=== PATIENT | male | born 1955 | race Caucasian/White ===

== ENCOUNTER 2017-01-09 16:56 | Emergency (ER) | payer OTHER ==
--- NOTE | 2017-01-09 17:40 | UC ---
Norm Lamas Nikita, scribed for Belia Evangelista MD on 01/09/17 at 1727 . Upper Extremity HPI - HPI Summary HPI Summary: This patient is a 61 year old M presenting to [facility] with a chief complaint of a pinched nerve in the R side of his neck since 3 weeks ago. The pt had a muscle cramps in his legs which caused him to swing his R arm which may have caused the pinch nerve. The CC is described as constant and aching. The patient rates the pain 8/10 in severity. Symptoms aggravated by turning his neck. Symptoms alleviated by Aleve (pt took other anti-inflammatory meds without relief) and lying down with his arm is above his head. Patient reports swelling in the fingers of his R hand, numbing in the R forearm, thumb, 1st finger, and half of 2nd finger on the R hand. Patient denies COLLAZO, eye symptoms, and any previous injuries to his neck. He has also been using tramadol for pain. (Review of HCS reveals that he is using suboxone per Dr. Gonzalez--info was not disclosed at triage.). - History of Current Complaint Chief Complaint: UCUpperExtremity Stated Complaint: SHOULDER PAIN Time Seen by Provider: 01/09/17 17:06 Hx Obtained From: Patient Onset/Duration: Sudden Onset, Lasting Weeks - 3 weeks ago, Still Present Severity Initially: Severe Severity Currently: Severe Pain Intensity: 8 Pain Scale Used: 0-10 Numeric Location Of Pain: Is Discrete @ - R side of the neck Character: Aching Aggravating Factor(s): Other - turning his neck Alleviating Factor(s): Other: - Aleve helped a bit, lying down with his R arm above his head; pt took other anti-inflammatory meds without relief Associated Signs And Symptoms: Positive: Other - Patient reports swelling in the fingers of his R hand, numbing in the R forearm, thumb, 1st finger, and half of 2nd finger on the R hand. Patient denies COLLAZO, eye symptoms, and any previous injuries to his neck. - Allergies/Home Medications Allergies/Adverse Reactions: Allergies Allergy/AdvReac Type Severity Reaction Status Date / Time Phenobarbital Allergy Unknown Unknown Verified 08/05/14 14:47 Reaction Details PMH/Surg Hx/FS Hx/Imm Hx Previously Healthy: No - spinal infection in lower back (2 years ago) Cardiovascular History: Hypertension Respiratory History: COPD - Surgical History Surgical History: None - Family History Known Family History: Positive: Diabetes Negative: Cardiac Disease, Hypertension - Social History Occupation: Employed Full-time - works for [employer]. Alcohol Use: Occasionally Substance Use Type: None Smoking Status (MU): Heavy Every Day Tobacco Smoker Type: Cigarettes Have You Smoked in the Last Year: Yes Household Exposure Type: Cigarettes - Immunization History Most Recent Influenza Vaccination: pt denies Most Recent Tetanus Shot: unknown Most Recent Pneumonia Vaccination: pt denies Review of Systems Eyes: Negative Musculoskeletal: Other: - swelling in the fingers of his R hand; denies previous injuries to the neck gets a lot of leg cramping. Neurological: Numbness - to R forearm, thumb, 1st finger, and half of 2nd finger on the R hand, Other - denies COLLAZO All Other Systems Reviewed And Are Negative: Yes Physical Exam Triage Information Reviewed: Yes Appearance: Well-Appearing, Pain Distress - mild, Obese Vital Signs: Initial Vital Signs Temp 97.1 F 01/09/17 17:01 Pulse 63 01/09/17 17:01 Resp 18 01/09/17 17:01 Pulse Ox 99 01/09/17 17:01 Eye Exam: Normal ENT: Positive: Pharynx normal Neck: Positive: Supple - almost full ROM without pain, mild pain with rotation to right and left., Nontender, No Lymphadenopathy Respiratory: Positive: Lungs clear, Normal breath sounds Cardiovascular: Positive: RRR, No Murmur Musculoskeletal: Positive: Strength Intact - full resisted strength deltoid, biceps, wrist extensors and flexors. Neurological: Positive: Muscle Tone Normal - no loss of port surveyor strength, no muscle wasting. Skin Exam: Normal, Other - tattoos ++ Upper Extremity Course/Dx - Course Course Of Treatment: Pt medications reviewed this visit. Pt advised to quit smoking. Clinical evidence of cervical radiculopathy or brachial plexopathy. Declined PT, will trial gabapenting, advised f/u with PMD. I declined a request for SOMA. - Differential Dx/Diagnosis Differential Diagnosis/HQI/PQRI: Strain, Sprain, Other - radiculopathy Provider Diagnoses: cervical radiculpathy or brachial plexopathy Discharge - Discharge Plan Condition: Stable Disposition: HOME Prescriptions: Gabapentin CAP(*) [Neurontin 300 CAP(*)] 300 mg PO BEDTIME #30 cap Patient Education Materials: Cervical Radiculopathy (ED) Referrals: Gm Anguiano MD [Primary Care Provider] - Additional Instructions: Please schedule a follow up with Dr. Anguiano within the week. You show evidence of sensory nerve radiculopathy, but no loss of muscle strength. Begin use of gabapentin at night to help with nerve pain. I suggest stopping use of tramadol because you are using suboxone. Continue use of naproxen 440mg twice daily for relief of pain. Use hot packs on the neck to relieve pain. The documentation as recorded by the Norm taveras Nikita accurately reflects the service I personally performed and the decisions made by me, Belia Evangelista MD.
== END 2017-01-09 17:40 | disposition home or self-care (01) ==
LOC: UCEAST 16:56
DX: M54.12 Radiculopathy, cervical region (principal); I10 Essential (primary) hypertension; J44.9 Chronic obstructive pulmonary disease, unspecified; Z88.8 Allergy status to other drugs, medicaments and biological substances
CPT/HCPCS: 99212; G0463

== ENCOUNTER 2017-11-30 13:08 | Emergency (ER) | payer OTHER ==
--- NOTE | 2017-11-30 14:08 | RAD ---
HISTORY: SOBOE, edema, swollen legs, shortness of breath on exertion COMPARISONS: November 25, 2017 VIEWS: 4: Frontal dual-energy and lateral views of the chest. FINDINGS: CARDIOMEDIASTINAL SILHOUETTE: The cardiomediastinal silhouette is normal. SOHAIL: The sohail are normal. PLEURA: The costophrenic angles are sharp. No pleural abnormalities are noted. LUNG PARENCHYMA: The lungs are clear. ABDOMEN: The upper abdomen is clear. There is no subphrenic gas. BONES AND SOFT TISSUES: Degenerative changes are noted along the spine. OTHER: None. IMPRESSION: NO ACTIVE CARDIOPULMONARY DISEASE.
[2017-11-30 14:38] LABS: ABS Basophils 0 10^3/ul (0-0.2); ABS Eosinophils 0.1 10^3/ul (0-0.6); ABS Lymphocytes 1.4 10^3/ul (1.0-4.8); ABS Monocytes 0.8 10^3/ul (0-0.8); ABS Neutrophils 4.1 10^3/ul (1.5-7.7); ABS Nucleated RBC 0 10^3/ul; Eosinophil % 1.5 % (0-6); Hematocrit 44 % (42-52); Hemoglobin 15.1 g/dl (14.0-18.0); Lymphocyte % 21.4 % (25-47); Mean Corpuscular HGB Conc 35 g/dl (31-36); Mean Corpuscular Hemoglobin 36 pg (27-31); Mean Corpuscular Volume 103 fL (80-94); Mean Platelet Volume 9.4 um3 (7.4-10.4); Nucleated Red Blood Cells % 0; Platelet Count 73 10^3/ul (150-450); Red Blood Count 4.25 10^6/ul (4.00-5.40); Red Cell Distribution Width 15 % (10.5-15); White Blood Count 6.4 10^3/ul (3.5-10.8)
[2017-11-30 14:57] LABS: EGFR Non-African American 83.2 (>60)
[2017-11-30] MEDS ORDERED: Hydrochlorothiazide TAB* 25 MG PO ONE (18:11)
--- NOTE | 2017-11-30 18:11 | ED ---
Lower Extremity - HPI Summary HPI Summary: Complains of bilateral lower extremity edema 1 month, worse for the past 1.5 weeks. Patient states pain with walking, legs itch. Swelling diminishes with elevation. Seen here 11/25/17 for same. Also complains of chronic SOB, and muscle spasms in hands. Patient went to PCP today and was sent to the ED for further evaluation of bilateral lower leg edema and possible abdominal bloating.. Denies trauma, wound, fever, cough, sore throat, CP, active SOB, N/V /D, abdominal pain him a change in BM, change in urine. Medical history is COPD , HTN, hep C. No cardiac history. - History of Current Complaint Chief Complaint: EDExtremityLower Stated Complaint: SWOLLEN LEGS Time Seen by Provider: 11/30/17 17:20 Hx Obtained From: Patient Mechanism Of Injury: Unknown Onset of Pain: Days Onset/Duration: Weeks Severity Initially: Moderate Severity Currently: Moderate Pain Intensity: 5 Pain Scale Used: 0-10 Numeric Timing: Constant Location: Radiates To - Upper legs Character Of Pain: Aching, Throbbing Associated Signs And Symptoms: Positive: Swelling, Redness Aggravating Factor(s): Standing, Ambulation, Weight Bearing Alleviating Factor(s): Rest, Elevation - Allergies/Home Medications Allergies/Adverse Reactions: Allergies Allergy/AdvReac Type Severity Reaction Status Date / Time phenobarbital Allergy Unknown Verified 11/25/17 18:01 Reaction Details PMH/Surg Hx/FS Hx/Imm Hx Endocrine/Hematology History: Denies: Hx Anticoagulant Therapy, Hx Diabetes Cardiovascular History: Reports: Hx Hypertension Denies: Hx Cardiac Arrest, Hx Pacemaker/ICD Respiratory History: Reports: Hx Chronic Obstructive Pulmonary Disease (COPD), Other Respiratory Problems/Disorders History: Denies: Hx Renal Disease Musculoskeletal History: Reports: Hx Back Problems, Other Musculoskeletal History - spinal osteomylitis Sensory History: Reports: Hx Contacts or Glasses Denies: Hx Hearing Aid Opthamlomology History: Reports: Hx Contacts or Glasses Psychiatric History: Denies: Hx Panic Disorder Infectious Disease History: No Infectious Disease History: Denies: Traveled Outside the [place] in Last 30 Days - Family History Known Family History: Positive: Diabetes Negative: Cardiac Disease, Hypertension - Social History Alcohol Use: Occasionally Hx Substance Use: No Substance Use Type: Reports: None Hx Tobacco Use: Yes Smoking Status (MU): Heavy Every Day Tobacco Smoker Type: Cigarettes Have You Smoked in the Last Year: Yes Review of Systems Constitutional: Negative Eyes: Negative ENT: Negative Cardiovascular: Negative Respiratory: Negative Positive: Shortness Of Breath Gastrointestinal: Negative Genitourinary: Negative Positive: Edema Skin: Other Neurological: Negative Psychological: Normal All Other Systems Reviewed And Are Negative: Yes Physical Exam - Summary Physical Exam Summary: Bilateral pitting edema below the knees with redness and thickening of skin. No evidence of wound, extra warmth. Calves nontender bilaterally. PMS intact distally Triage Information Reviewed: Yes Vital Signs On Initial Exam: Initial Vitals Temp Pulse Resp BP Pulse Ox 99.6 F 75 15 163/102 95 11/30/17 13:10 11/30/17 13:10 11/30/17 13:10 11/30/17 13:10 11/30/17 13:10 Vital Signs Reviewed: Yes Appearance: Positive: Well-Appearing Skin: Positive: Warm Head/Face: Positive: Normal Head/Face Inspection Eyes: Positive: Normal Neck: Positive: Supple Respiratory/Lung Sounds: Positive: Clear to Auscultation Cardiovascular: Positive: Normal Abdomen Description: Positive: Nontender Musculoskeletal: Positive: Normal Neurological: Positive: Normal Psychiatric: Positive: Normal AVPU Assessment: Alert - Sandra Coma Scale Best Eye Response: 4 - Spontaneous Best Motor Response: 6 - Obeys Commands Best Verbal Response: 5 - Oriented Coma Scale Total: 15 Diagnostics - Vital Signs Vital Signs Temp Pulse Resp BP Pulse Ox 11/30/17 15:00 98.5 F 72 18 155/82 96 11/30/17 13:10 99.6 F 75 15 163/102 95 - Laboratory Lab Results: Lab Results 11/30/17 11/30/17 11/30/17 Range/Units 14:21 14:21 14:21 WBC 6.4 (3.5-10.8) 10^3/ul RBC 4.25 (4.00-5.40) 10^6/ul Hgb 15.1 (14.0-18.0) g/dl Hct 44 (42-52) % MCV 103 H (80-94) fL MCH 36 H (27-31) pg MCHC 35 (31-36) g/dl RDW 15 (10.5-15) % Plt Count 73 L (150-450) 10^3/ul MPV 9.4 (7.4-10.4) um3 Neut % (Auto) 63.8 (38-83) % Lymph % (Auto) 21.4 L (25-47) % Upton % (Auto) 12.6 H (0-7) % Eos % (Auto) 1.5 (0-6) % Baso % (Auto) 0.7 (0-2) % Absolute Neuts (auto) 4.1 (1.5-7.7) 10^3/ul Absolute Lymphs (auto) 1.4 (1.0-4.8) 10^3/ul Absolute Monos (auto) 0.8 (0-0.8) 10^3/ul Absolute Eos (auto) 0.1 (0-0.6) 10^3/ul Absolute Basos (auto) 0 (0-0.2) 10^3/ul Absolute Nucleated RBC 0 10^3/ul Nucleated RBC % 0 Sodium 136 (135-145) mmol/L Potassium 4.4 (3.5-5.0) mmol/L Chloride 106 (101-111) mmol/L Carbon Dioxide 24 (22-32) mmol/L Anion Gap 6 (2-11) mmol/L BUN 10 (6-24) mg/dL Creatinine 0.93 (0.67-1.17) mg/dL Est GFR ( Amer) 100.6 (>60) Est GFR (Non-Af Amer) 83.2 (>60) BUN/Creatinine Ratio 10.8 (8-20) Glucose 108 H (70-100) mg/dL Calcium 8.8 (8.6-10.3) mg/dL Total Bilirubin 1.60 H (0.2-1.0) mg/dL AST 85 H (13-39) U/L ALT 52 (7-52) U/L Alkaline Phosphatase 82 (34-104) U/L Troponin I 0.00 (<0.04) ng/mL C-Reactive Protein 4.67 (<8.01) mg/L B-Natriuretic Peptide 90 ( - 100) pg/mL Total Protein 7.8 (6.4-8.9) g/dL Albumin 3.8 (3.2-5.2) g/dL Globulin 4.0 (2-4) g/dL Albumin/Globulin Ratio 1.0 (1-3) Result Diagrams: 11/30/17 14:21 11/30/17 14:21 Lab Statement: Any lab studies that have been ordered have been reviewed, and results considered in the medical decision making process. Lower Extremity Course/Dx - Course Course Of Treatment: Complains of bilateral lower extremity edema 1 month, worse for the past 1.5 weeks. Patient states pain with walking, legs itch. Swelling diminishes with elevation. Seen here 11/25/17 for same. Also complains of chronic SOB, and muscle spasms in hands. Patient went to PCP today and was sent to the ED for further evaluation of bilateral lower leg edema and possible abdominal bloating.. Denies trauma, wound, fever, cough, sore throat, CP, active SOB, N/V/D, abdominal pain him a change in BM, change in urine. Medical history is COPD, HTN, hep C. No cardiac history. Physical exam:Bilateral pitting edema below the knees with redness and thickening of skin. No evidence of wound, extra warmth. Calves nontender bilaterally. PMS intact distally. Vital signs within normal limits and stable. Labs unremarkable. Chest x-ray negative. BMP negative. Patient started on hydrochlorothiazide 25 mg here in the ED. Rx for 25 mg daily 30 days. Follow-up with primary care. - Diagnoses Provider Diagnoses: Peripheral edema, Venous stasis Discharge - Sign-Out/Discharge Documenting (check all that apply): Patient Departure - Discharge Plan Condition: Stable Disposition: HOME Prescriptions: Hydrochlorothiazide TAB* [Hydrodiuril TAB*] 25 mg PO DAILY 30 Days #30 tab Patient Education Materials: Leg Edema (ED), Venous Insufficiency (DC) Referrals: Carie Martino MD [Primary Care Provider] - Additional Instructions: Follow-up with primary care for further management of leg edema and venous stasis. Return to the ED for any new or worsening symptoms - Billing Disposition and Condition Condition: STABLE Disposition: Home
[2017-11-30 19:14] VITALS: BP 168/102
== END 2017-11-30 19:13 | disposition home or self-care (01) ==
LOC: ED 13:08
DX: R60.0 Localized edema (principal); I87.8 Other specified disorders of veins; R06.02 Shortness of breath; M62.838 Other muscle spasm; Z88.8 Allergy status to other drugs, medicaments and biological substances; F17.210 Nicotine dependence, cigarettes, uncomplicated
CPT/HCPCS: 36415; 71046; 80053; 83880; 84484; 85025; 86140; 99282; A9270-GY

== ENCOUNTER 2018-04-17 18:01 | Emergency (ER) | payer OTHER ==
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
[2018-04-17 21:42] LABS: ALT 66 U/L (7-52); AST 135 U/L (13-39); Albumin 3.6 g/dL (3.2-5.2); Albumin/Globulin Ratio 0.9 (1-3); Alkaline Phosphatase 101 U/L (34-104); Anion Gap 8 mmol/L (2-11); BUN/Creatinine Ratio 9.7 (8-20); Blood Urea Nitrogen 11 mg/dL (6-24); CO2 Carbon Dioxide 22 mmol/L (22-32); Calcium 9.1 mg/dL (8.6-10.3); Chloride 104 mmol/L (101-111); EGFR African American 80.1 (>60); EGFR Non-African American 66.2 (>60); Globulin 4.2 g/dL (2-4); Glucose 139 mg/dL (70-100); Potassium 4.2 mmol/L (3.5-5.0); Sodium 134 mmol/L (135-145); Total Protein 7.8 g/dL (6.4-8.9)
[2018-04-17 21:49] LABS: Hematocrit 46 % (42-52); Hemoglobin 15.8 g/dl (14.0-18.0); Mean Corpuscular HGB Conc 34 g/dl (31-36); Mean Corpuscular Hemoglobin 36 pg (27-31); Mean Corpuscular Volume 106 fL (80-94); Red Blood Count 4.39 10^6/ul (4.00-5.40); Red Cell Distribution Width 16 % (10.5-15); White Blood Count 6.3 10^3/ul (3.5-10.8)
[2018-04-17 21:56] LABS: Alcohol < 10 mg/dL (<10)
[2018-04-17 22:10] LABS: ABS Basophils 0 10^3/ul (0-0.2); ABS Eosinophils 0.1 10^3/ul (0-0.6); ABS Lymphocytes 1.6 10^3/ul (1.0-4.8); ABS Monocytes 0.6 10^3/ul (0-0.8); ABS Neutrophils 3.9 10^3/ul (1.5-7.7); ABS Nucleated RBC 0 10^3/ul; Eosinophil % 2.2 %; Lymphocyte % 25.2 %; Mean Platelet Volume 10.1 fL (7.4-10.4); Nucleated Red Blood Cells % 0.2; Platelet Count 71 10^3/ul (150-450)
[2018-04-17 23:33] LABS: Urine Appearance Cloudy; Urine Bacteria Absent (Absent); Urine Bilirubin 1+ (Negative); Urine Blood Negative (Negative); Urine Color Amber; Urine Glucose Negative (Negative); Urine Ketones Trace (Negative); Urine Nitrite Negative (Negative); Urine Protein 1+(30 mg/dL) (Negative); Urine Red Blood Cell 2+(6-10/hpf) (Absent); Urine Specific Gravity 1.033 (1.010-1.030); Urine Urobilinogen Positive (Negative); Urine White Blood Cell Trace(0-5/hpf) (Absent)
[2018-04-17 23:48] LABS: Barbiturates Urine Screen None Detected (None Detect); Benzodiazepine Urine Screen None Detected (None Detect); Urine Cannabinoids Screen None Detected (None Detect)
[2018-04-18 00:37] VITALS: BP 162/98
== END 2018-04-18 00:52 | disposition short-term general hospital (02) ==
LOC: ED 18:01
DX: R41.82 Altered mental status, unspecified (principal); G56.30 Lesion of radial nerve, unspecified upper limb; I10 Essential (primary) hypertension; J44.9 Chronic obstructive pulmonary disease, unspecified; F17.210 Nicotine dependence, cigarettes, uncomplicated
CPT/HCPCS: 36415; 70450; 72125; 80053; 80307; 80320; 81003; 81015; 85025; 87086; 99283; G0480

== ENCOUNTER 2018-10-04 17:50 | Inpatient (IN) | payer OTHER ==
--- NOTE | 2018-10-04 20:36 | ED ---
GI/ HPI - HPI Summary HPI Summary: A 62 y/o male presents to [facility] with a chief complaint of constipation for 4 weeks. The patient has been using Miralax and enemas and claims that only clear liquid was able to come out. The patient c/o some abdominal pain, and cannot eat much. REACH referred him to the ED. He has been taking his suboxone. He denies any Hx of hernias or any abdominal surgeries. Pt denies any fever, chills , erythema of eyes, sore throat, CP, SOB, cough, N/V, dysuria, hematuria, myalgia, edema, rash, or dizziness. At triage the patient rated his pain as a 5/ 10 in severity. - History of Current Complaint Chief Complaint: EDConstipation Time Seen by Provider: 10/04/18 19:49 Stated Complaint: UNABLE TO MOVE HIS BOWELS PER PT Hx Obtained From: Patient Onset/Duration: Started Weeks Ago, Still Present Timing: Lasting Weeks Severity: Moderate Current Severity: Moderate Pain Intensity: 5 Location of Pain: Diffuse Pain Characteristics: Unable to describe Associated Signs and Symptoms: Positive: Abdominal Pain. Negative: Dizziness, Nausea, Vomiting, Fever, Chills, Cough, Chest Pain Aggravating Factor(s): Nothing Alleviating Factor(s): Nothing - Allergy/Home Medications Allergies/Adverse Reactions: Allergies Allergy/AdvReac Type Severity Reaction Status Date / Time phenobarbital Allergy Unknown Verified 10/04/18 19:51 Reaction Details PMH/Surg Hx/FS Hx/Imm Hx Endocrine/Hematology History: Denies: Hx Anticoagulant Therapy, Hx Diabetes Cardiovascular History: Reports: Hx Hypertension Denies: Hx Cardiac Arrest, Hx Pacemaker/ICD Respiratory History: Reports: Hx Chronic Obstructive Pulmonary Disease (COPD), Other Respiratory Problems/Disorders GI History: Reports: Other GI Disorders - Patient has taken therapy for hepatitis C and states he is cleared History: Denies: Hx Renal Disease Musculoskeletal History: Reports: Hx Back Problems, Other Musculoskeletal History - spinal osteomylitis Sensory History: Reports: Hx Contacts or Glasses Denies: Hx Hearing Aid Opthamlomology History: Reports: Hx Contacts or Glasses Neurological History: Reports: Other Neuro Impairments/Disorders - Patient has a history of painful peripheral neuropathy Psychiatric History: Denies: Hx Panic Disorder Infectious Disease History: No Infectious Disease History: Denies: Traveled Outside the [place] in Last 30 Days - Family History Known Family History: Positive: Diabetes Negative: Cardiac Disease, Hypertension - Social History Alcohol Use: Occasionally Hx Substance Use: No Substance Use Type: Reports: None Substance Use Comment - Amount & Last Used: on subaxone Hx Tobacco Use: Yes Smoking Status (MU): Heavy Every Day Tobacco Smoker Type: Cigarettes Have You Smoked in the Last Year: Yes Review of Systems Negative: Fever, Chills Negative: Erythema Negative: Sore Throat Negative: Chest Pain Negative: Shortness Of Breath, Cough Positive: Abdominal Pain, Other - positive: constipation. Negative: Vomiting, Nausea Negative: dysuria, hematuria Negative: Myalgia, Edema Negative: Rash Neurological: Negative - dizziness All Other Systems Reviewed And Are Negative: Yes Physical Exam - Summary Physical Exam Summary: Constitutional: Well-developed, Well-nourished, Alert. (-) Distressed Skin: Warm, Dry HENT: Normocephalic; Atraumatic Eyes: Conjunctiva normal Neck: Musculoskeletal ROM normal neck. (-) JVD, (-) Stridor, (-) Tracheal deviation Cardio: Rhythm regular, rate normal, Heart sounds normal; Intact distal pulses; The pedal pulses are 2+ and symmetric. Radial pulses are 2+ and symmetric. (-) Murmur Pulmonary/Chest wall: Effort normal. (-) Respiratory distress, (-) Wheezes, (-) Rales Abd: Soft, (-) tenderness (-) Guarding, (-) Rebound. Distended abdomen, bowel sounds are present Musculoskeletal: (-) Edema Lymph: (-) Cervical adenopathy Neuro: Alert, Oriented x3 Triage Information Reviewed: Yes Vital Signs On Initial Exam: Initial Vitals Temp Pulse Resp BP Pulse Ox 98.3 F 98 16 157/99 97 10/04/18 18:04 10/04/18 18:04 10/04/18 18:04 10/04/18 18:04 10/04/18 18:04 Vital Signs Reviewed: Yes Diagnostics - Vital Signs Vital Signs Temp Pulse Resp BP Pulse Ox 10/04/18 20:01 91 98 10/04/18 19:45 98 157/99 99 10/04/18 19:44 95 99 10/04/18 18:04 98.3 F 98 16 157/99 97 - Laboratory Result Diagrams: 10/04/18 21:59 07/17/19 21:59 Lab Statement: Any lab studies that have been ordered have been reviewed, and results considered in the medical decision making process. - Radiology abdomen x-ray Radiology Interpretation Completed By: ED Physician Summary of Radiographic Findings: Air fluid levels. Pending official imaging report. GIGU Course/Dx - Course Course Of Treatment: A 62 y/o male presents to [facility] with a chief complaint of constipation for 4 weeks. The patient has been using Miralax and enemas and claims that only clear liquid was able to come out. The patient c/o some abdominal pain, and cannot eat much. REACH referred him to the ED. He has been taking his suboxone. He denies any Hx of hernias or any abdominal surgeries. Pt denies any fever, chills, erythema of eyes, sore throat, CP, SOB, cough, N/V, dysuria, hematuria, myalgia, edema, rash, or dizziness. At triage the patient rated his pain as a 5/10 in severity. The physical exam revealed a distended abdomen, bowel sounds are present. Abdomen x-ray revealed air fluid levels. The patient will be signed out to Dr. Waite at 22:00 10/04/[address] abdomen/ pelvis, gallbladder ultrasound and labs. - Diagnoses Provider Diagnoses: Constipation Discharge - Sign-Out/Discharge Documenting (check all that apply): Sign-Out Patient Signing out patient TO: Bonny Waite - pending CT abomen/pelvis, gallbladder ultrasound and labs Patient Received Moderate/Deep Sedation with Procedure: No - Discharge Plan Condition: Stable Referrals: Carie Martino MD [Primary Care Provider] - - Attestation Statements Document Initiated by Scribe: Yes Documenting Scribe: Nir Gooden Provider For Whom Scribe is Documenting (Include Credential): Nikko Marie MD Scribe Attestation: Nir Lamas, scribed for Nikko Marie MD on 10/04/18 at 4725.
[2018-10-04 22:10] LABS: Hematocrit 40 % (42-52); Hemoglobin 13.8 g/dL (14.0-18.0); Mean Corpuscular HGB Conc 34 g/dL (31-36); Mean Corpuscular Hemoglobin 38 pg (27-31); Mean Corpuscular Volume 110 fL (80-94); Mean Platelet Volume 8.6 fL (7.4-10.4); Platelet Count 64 10^3/uL (150-450); Red Blood Count 3.68 10^6 /uL (4.18-5.48); Red Cell Distribution Width 16 % (10-15); White Blood Count 6.6 10^3/uL (3.5-10.8)
[2018-10-04 22:23] LABS: Albumin 2.8 g/dL (3.2-5.2); Albumin/Globulin Ratio 0.6 (1-3); BUN/Creatinine Ratio 9.3 (8-20); Calcium 8.5 mg/dL (8.6-10.3); EGFR African American 85.3 (>60); EGFR Non-African American 70.5 (>60); Globulin 4.6 g/dL (2-4); Potassium 3.8 mmol/L (3.5-5.0); Total Bilirubin 8.3 mg/dL (0.2-1.0); Total Protein 7.4 g/dL (6.4-8.9)
--- NOTE | 2018-10-04 22:56 | ED ---
Progress - Progress Note Progress Note: Patient received from Dr. Marie to Dr. Waite at 2200 10/04/[address] A/P, labs, and gallbladder US. - Results/Orders Results/Orders: Gallbladder US: Per radiologist, 1. The common bile duct was not visualized because of overlying bowel gas. 2. There is ascites in the abdomen. 3. The liver parenchyma is echogenic and there is nodular contour consistent with hepatic cirrhosis. 4. The gallbladder is partly obscured but no visible calculi but there is mild gallbladder wall thickening measuring 4 mm and there is ascites fluid in the gallbladder fossa but negative sonographic Walker sign and therefore not specific for acute cholecystitis. ED physician has reviewed this imaging report. Abdomen/Pelvis CT: Per radiologist, 1. There is a moderate left pleural effusion and left base atelectasis and/or pneumonitis. 2. There is diffuse fatty liver and small nodular contour of the liver suspicious for hepatic cirrhosis. 3. The gallbladder is moderately distended and there are punctate calcifications along the gallbladder wall which may represent tiny cholelithiasis versus calcified polyps. 4. There are portosystemic collateral veins in the abdomen and paraesophageal region consistent with portal venous hypertension related to hepatic cirrhosis. 5. There is moderate ascites in the abdomen and pelvis likely secondary to hepatic cirrhosis. 6. There may be mild wall thickening in the distal esophagus, cannot exclude mild esophagitis. 7. There are mildly dilated loops of proximal jejunum, cannot exclude focal ileus versus partial small bowel obstruction. ED physician has reviewed this imaging report. Course/Dx - Course Course Of Treatment: A 62 y/o male presents to [facility] with a chief complaint of distended abdomen. Hx of Hepatitis C last year. Patient was treated by Dr. Eden Waldrop and Daiana Martino, his primary care provider. Patient reports to consume alchol every day "forever" as described by . Patient was diagnosed with liver cirrhosis by Dr. Martino . Patient denies fluid being taken out of abdomen. Patient denies any serious fall but notes he fell out of his bed a few weeks ago. Physical exam shows no abnormalities except for Tense ascites, Lower extremity edema, Large ecchymotic area over right lower abdomen, and Icteric scelra. Gallbladder US reveals. 1. The common bile duct was not visualized because of overlying bowel gas. 2. There is ascites in the abdomen. 3. The liver parenchyma is echogenic and there is nodular contour consistent. with hepatic cirrhosis. 4. The gallbladder is partly obscured but no visible calculi but there is mild. gallbladder wall thickening measuring 4 mm and there is ascites fluid in the. gallbladder fossa but negative sonographic Walker sign and therefore not. specific for acute cholecystitis. Abdomen/ Pelvis CT reveals. 1. There is a moderate left pleural effusion and left base atelectasis and/or. pneumonitis. 2. There is diffuse fatty liver and small nodular contour of the liver. suspicious for hepatic cirrhosis. 3. The gallbladder is moderately distended and there are punctate. calcifications along the gallbladder wall which may represent tiny. cholelithiasis versus calcified polyps. 4. There are portosystemic collateral veins in the abdomen and paraesophageal. region consistent with portal venous hypertension related to hepatic cirrhosis. 5. There is moderate ascites in the abdomen and pelvis likely secondary to. hepatic cirrhosis. 6. There may be mild wall thickening in the distal esophagus, cannot exclude. mild esophagitis. 7. There are mildly dilated loops of proximal jejunum, cannot exclude focal. ileus versus partial small bowel obstruction. Physician discusses admission with Dr. Yadav, hospitalist, at 0115 who agrees to admission. Patient agrees to plan. Patient will be admitted. - Diagnoses Provider Diagnoses: Liver cirrhosis, Ascites - Provider Notifications Discussed Care Of Patient With: Eder Yadav Time Discussed With Above Provider: 01:15 Instructed by Provider To: Other Discharge - Sign-Out/Discharge Documenting (check all that apply): Patient Departure - admit Patient Received Moderate/Deep Sedation with Procedure: No - Discharge Plan Condition: Stable Disposition: ADMITTED TO [facility] - Billing Disposition and Condition Condition: STABLE Disposition: Admitted to [facility] - Attestation Statements Document Initiated by Cassidyibe: Yes Documenting Scribe: Sheron Solomon Provider For Whom Carlos is Documenting (Include Credential): Bonny Waite MD Scribe Attestation: Cydney, Sheron Solomon, scribed for Bonny Waite MD on 10/05/18 at 0615. Scribe Documentation Reviewed: Yes Provider Attestation: The documentation as recorded by the cassidyibtata, Sheron Solomon accurately reflects the service I personally performed and the decisions made by mn, Bonny Waite MD Status of Scribe Document: Viewed
[2018-10-04] MEDS ORDERED: Iohexol 300* (CONTRAST) 10 ML SDV IV ONE (22:58)
[2018-10-04 23:11] LABS: Activated Partial Thrombo Time 45.6 seconds (26.0-38.0); INR 2.25 (0.82-1.09)
[2018-10-04 23:22] LABS: C Reactive Protein 15.97 mg/L (<8.01); Magnesium 1.9 mg/dL (1.9-2.7)
--- NOTE | 2018-10-05 04:59 | HP ---
History of Present Illness - History of Present Illness Reason for Visit: Constipation History of Present Illness: 62yoM with HTN, Hep C s/p interferon treatment, COPD here due to constipation with no BM for over 4 weeks. No other fever, chills. Feels bloated, "ready to explode", abdominal pain especially if he coughs. No nausea/vomiting. Feels a bit short of breath due to abdominal distension. Past Medical History Hypertension CAD Chronic Obstructive Pulmonary Disease (COPD) Hepatitis C s/p interferon History of polysubstance abuse now on suboxone has been clean for 3 years Hx Back Problems with Spinal osteomylitis s/p PICC line with ABx for 1 year Peripheral neuropathy Klebsiella Pneumoniae bacteremia with PICC line infection Past Surgical History None Allergies Allergy/AdvReac Type Severity Reaction Status Date / Time phenobarbital Allergy Unknown Verified 10/04/18 19:51 Reaction Details Home Medications Medication Instructions Recorded Confirmed Type Fluticasone-Salmeterol 100-50* 1 puff INH BID 08/05/14 10/04/18 History [Advair Diskus 100-50*] Tramadol HCl [Ultram] 50 mg PO TID PRN 08/05/14 10/04/18 History Gabapentin CAP(*) [Neurontin 300 300 mg PO BEDTIME #30 cap 01/09/17 10/04/18 Rx CAP(*)] Buprenorp/Nalox 8-2 MG FILM 16 mg PO DAILY 11/25/17 10/04/18 History [Suboxone 8 mg-2 mg Sl Film] Lisinopril 20 mg PO DAILY 11/25/17 10/04/18 History - Past Family History Family History: Other - Father of heart attack in his 70s. Mother age 87 due to old age. - Past Social History Smoke: 1 pack per day - For at least 30 years. 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 Alcohol: Heavy - 1-2 Drinks every day. Usually prefers burbon and coke. Drugs: None, Cocaine, Heroin - Used up until 3 years ago when he quit. Now on suboxone., Marijuana Lives: With Family - Lives with . Review of Systems - Measurements Intake and Output: Intake and Output Last 24 Hours 10/02/18 10/03/18 10/04/18 10/05/18 06:59 06:59 06:59 06:59 Weight 220 lb - Review of Systems Constitutional Symptoms: Positive: Weight Gain Negative: Fever Pulmonary: Positive: Shortness of Breath Cardiology: Positive: Shortness of Breath Negative: Chest Pain Gastroenterology: Positive: Abdominal Pain, Constipation Negative: Nausea, Vomiting Objective Vital Signs - 8 hr 10/04/18 10/04/18 10/04/18 21:01 21:13 21:15 Pulse Rate 88 94 86 Blood Pressure 159/107 (mmHg) O2 Sat by Pulse 97 99 98 Oximetry 10/04/18 10/04/18 10/04/18 22:00 22:15 23:22 Pulse Rate 95 93 92 Blood Pressure 149/89 (mmHg) O2 Sat by Pulse 99 99 97 Oximetry 10/05/18 10/05/18 00:00 01:00 Pulse Rate 91 90 Blood Pressure (mmHg) O2 Sat by Pulse 98 95 Oximetry Oxygen Devices in Use Now: None Eyes: No Scleral Icterus, PERRLA Ears/Nose/Mouth/Throat: NL Teeth, Lips, Gums, Clear Oropharnyx, Mucous Membranes Moist Neck: Trachea Midline Respiratory: Clear to Auscultation Cardiovascular: NL Sounds; No Murmurs; No JVD, RRR Abdominal: - - Abdominal distension with shifting dullness. Extremities: - - Bilateral LE pitting edema. Skin: No Rash or Ulcers Neurological: Alert and Oriented x 3, NL Sensation, NL Muscle Strength and Tone Nutrition: Taking PO's Result Diagrams: 10/04/18 21:59 10/04/18 21:59 Diagnostic Imaging: Gallbladder US: 1. The common bile duct was not visualized because of overlying bowel gas. 2. There is ascites in the abdomen. 3. The liver parenchyma is echogenic and there is nodular contour consistent with hepatic cirrhosis. 4. The gallbladder is partly obscured but no visible calculi but there is mild gallbladder wall thickening measuring 4 mm and there is ascites fluid in the gallbladder fossa but negative sonographic Walker sign and therefore not specific for acute cholecystitis. Abdomen/Pelvis CT: 1. There is a moderate left pleural effusion and left base atelectasis and/or pneumonitis. 2. There is diffuse fatty liver and small nodular contour of the liver suspicious for hepatic cirrhosis. 3. The gallbladder is moderately distended and there are punctate calcifications along the gallbladder wall which may represent tiny cholelithiasis versus calcified polyps. 4. There are portosystemic collateral veins in the abdomen and paraesophageal region consistent with portal venous hypertension related to hepatic cirrhosis. 5. There is moderate ascites in the abdomen and pelvis likely secondary to hepatic cirrhosis. 6. There may be mild wall thickening in the distal esophagus, cannot exclude mild esophagitis. 7. There are mildly dilated loops of proximal jejunum, cannot exclude focal ileus versus partial small bowel obstruction. Assess/Plan/Problems-Billing Assessment: - Patient Problems (1) Cirrhosis of liver with ascites Current Visit: Yes Status: Acute Code(s): K74.60 - UNSPECIFIED CIRRHOSIS OF LIVER; R18.8 - OTHER ASCITES SNOMED Code(s): 50427176 Comment: Will get paracenthesis and analyze the fluid. Consult GI regarding worsening liver function with MELD score of 24. If fluid shows elevated WBC can consider treatment for SBP. Given elevated ammonia will consider lactulose although patient currently not altered. (2) Constipation Current Visit: Yes Status: Acute Code(s): K59.00 - CONSTIPATION, UNSPECIFIED SNOMED Code(s): 89208408 Comment: Likely secondary to ascieties. Start lactulose. (3) Hepatitis C virus infection cured after antiviral drug therapy Current Visit: Yes Status: Resolved Code(s): Z86.19 - PERSONAL HISTORY OF OTHER INFECTIOUS AND PARASITIC DISEASES SNOMED Code(s): 604782050 (4) COPD (chronic obstructive pulmonary disease) Current Visit: No Status: Chronic Priority: Medium Code(s): J44.9 - CHRONIC OBSTRUCTIVE PULMONARY DISEASE, UNSPECIFIED SNOMED Code(s): 78022892 Comment: Stable- no evidence of exacerbation at this time. (5) HTN (hypertension) Current Visit: No Status: Chronic Code(s): I10 - ESSENTIAL (PRIMARY) HYPERTENSION SNOMED Code(s): 56861352 Comment: Restart home meds. (6) Opiate dependence Current Visit: Yes Status: Acute Code(s): F11.20 - OPIOID DEPENDENCE, UNCOMPLICATED SNOMED Code(s): 70559933 Comment: On Suboxone. (7) DVT prophylaxis Current Visit: No Status: Acute Code(s): NTG3638 - SNOMED Code(s): 688151398 Comment: SCD only given abnormal LFTs
[2018-10-05] MEDS ORDERED: traMADol TAB* 50 MG PO PRN (05:41)
[2018-10-05] MEDS: Mometasone/Formoter 100/5 MDI INH SCH ×2 (07:25→19:10)
[2018-10-05 09:18] LABS: ALT 75 U/L (7-52); Albumin 2.8 g/dL (3.2-5.2); Albumin/Globulin Ratio 0.7 (1-3); Alkaline Phosphatase 73 U/L (34-104); BUN/Creatinine Ratio 10.9 (8-20); Blood Urea Nitrogen 11 mg/dL (6-24); CO2 Carbon Dioxide 25 mmol/L (22-32); Calcium 8.2 mg/dL (8.6-10.3); Chloride 101 mmol/L (101-111); EGFR African American 91.2 (>60); EGFR Non-African American 75.4 (>60); Globulin 4.3 g/dL (2-4); Glucose 94 mg/dL (70-100); Sodium 132 mmol/L (135-145); Total Protein 7.1 g/dL (6.4-8.9)
[2018-10-05 09:30] LABS: Anion Gap 6 mmol/L (2-11)
[2018-10-05 09:33] LABS: Urine Appearance Clear; Urine Bacteria Absent (Absent); Urine Bilirubin 1+ (Negative); Urine Blood 2+ (Negative); Urine Color Amber; Urine Glucose Negative (Negative); Urine Ketones Trace (Negative); Urine Nitrite Negative (Negative); Urine Protein 1+(30 mg/dL) (Negative); Urine Red Blood Cell 3+(>10/hpf) (Absent); Urine Specific Gravity 1.025 (1.010-1.030); Urine Squamous Epithelial Cell Present (Absent); Urine Urobilinogen Positive (Negative); Urine White Blood Cell Trace(0-5/hpf) (Absent)
[2018-10-05 10:08] LABS: ABS Basophils 0.1 10^3/ul (0-0.2); ABS Eosinophils 0.1 10^3/ul (0-0.6); ABS Lymphocytes 2.1 10^3/ul (1.0-4.8); ABS Monocytes 0.9 10^3/ul (0-0.8); ABS Neutrophils 3.9 10^3/ul (1.5-7.7); Eosinophil % 1.8 %; Hematocrit 38 % (42-52); Hemoglobin 12.8 g/dL (14.0-18.0); Lymphocyte % 30.2 %; Mean Corpuscular HGB Conc 34 g/dL (31-36); Mean Corpuscular Hemoglobin 37 pg (27-31); Mean Corpuscular Volume 108 fL (80-94); Mean Platelet Volume 9.4 fL (7.4-10.4); Nucleated Red Blood Cells % 0.1; Platelet Count 89 10^3/uL (150-450); Red Blood Count 3.46 10^6 /uL (4.18-5.48); Red Cell Distribution Width 16 % (10-15); White Blood Count 7.1 10^3/uL (3.5-10.8)
[2018-10-05 10:43] LABS: Potassium Redraw 3.8 mmol/L (3.5-5.0)
[2018-10-05] MEDS: Lisinopril TAB* 10 MG PO SCH (11:23)
[2018-10-05] MEDS: Buprenorp/Nalox 8-2 MG FILM SL FILM SCH (11:50)
--- NOTE | 2018-10-05 17:58 | PN ---
Progress Note - Progress Note Date of Service: 10/05/18 Note: Procedure note: Left sided paracentesis - diagnostic and therapeutic Time out performed with 2 nurses Elevated INR and thrombocytopenia noted Risks of procedure discussed with patient including but not limited to bleeding , infection and bowel perforation Consent in chart Site marked 3 cm medial and superior to anterior superior IS Large pocket of fluid confirmed with US Site prepped and cleaned with chlorhexidine. Performed using sterile technique. 5ml 1% lidocaine used Needle advanced and 1cc bloodly fluid returned. Unable to obtain additional fluid in this location another attempt performed inferior to initially marked position. No fluid returned but unable to utilize seldinger technique after needled/catherter used in previous location. Fluid at site again identified under marked location approximately 4 cm below abdomen. No bowel. Elevated to terminate today and reattempt tomorrow with new paracentesis tray when present Patient tolerated procedure well without complication
--- NOTE | 2018-10-05 19:02 | PN ---
Subjective Date of Service: 10/05/18 Interval History: Patient presented with complain of constipation and abdominal pain for 4 weeks. He also complains of distended abdomen. His friend and family notes that his skin was yellow. No history of fever, any bowel surgery in the past. He is a Iv drug user(left 3 year ago) and has Hepatitis C infection status post interferon therapy. He drinks alcohol daily around 2-3 drinks/day. Last drink was 1 week ago. Objective Active Medications: Buprenorphine/Naloxone (Suboxone 8 Mg-2 Mg Sl Film) 2 each SL FILM DAILY [facility] Last Admin: 10/05/18 11:50 Dose: Not Given Gabapentin (Neurontin Cap(*)) 300 mg PO BEDTIME [facility] Lactulose (Lactulose*) 30 ml PO QID [facility] Last Admin: 10/05/18 17:48 Dose: Not Given Lisinopril (Prinivil Tab*) 20 mg PO DAILY [facility] Last Admin: 10/05/18 11:23 Dose: Not Given Mometasone Furoate/Formoterol Fumar (Dulera 100/5 Mdi*) 2 puff INH BID [facility] Last Admin: 10/05/18 07:25 Dose: Not Given Tramadol HCl (Ultram*) 50 mg PO TID PRN PRN Reason: PAIN Vital Signs - 8 hr 10/05/18 10/05/18 12:19 15:57 Temperature 98.1 F 98.0 F Pulse Rate 80 107 Respiratory 20 20 Rate Blood Pressure 125/77 125/82 (mmHg) O2 Sat by Pulse 96 98 Oximetry Oxygen Devices in Use Now: None Exam: Patient was lying in a bed with no acute distress. General: Jaundice, Palmar erythema and spider nevi noted. Abdomen: Abdomen is distended with some collaterals visible. It was hyperresonant on center and dull on latral sides. No fluid wave. Bowel sound was present on all quadrants of abdomen. Respiratory: Normal vesicular sound heard on both lungs. CVS: Normal heart sound heard with no any murmur. Neuro: Alert, conscious and oriented. Result Diagrams: 10/05/18 08:44 10/05/18 09:56 Diagnostic Imaging: Gallbladder US: 1. The common bile duct was not visualized because of overlying bowel gas. 2. There is ascites in the abdomen. 3. The liver parenchyma is echogenic and there is nodular contour consistent with hepatic cirrhosis. 4. The gallbladder is partly obscured but no visible calculi but there is mild gallbladder wall thickening measuring 4 mm and there is ascites fluid in the gallbladder fossa but negative sonographic Walker sign and therefore not specific for acute cholecystitis. Abdomen/Pelvis CT: 1. There is a moderate left pleural effusion and left base atelectasis and/or pneumonitis. 2. There is diffuse fatty liver and small nodular contour of the liver suspicious for hepatic cirrhosis. 3. The gallbladder is moderately distended and there are punctate calcifications along the gallbladder wall which may represent tiny cholelithiasis versus calcified polyps. 4. There are portosystemic collateral veins in the abdomen and paraesophageal region consistent with portal venous hypertension related to hepatic cirrhosis. 5. There is moderate ascites in the abdomen and pelvis likely secondary to hepatic cirrhosis. 6. There may be mild wall thickening in the distal esophagus, cannot exclude mild esophagitis. 7. There are mildly dilated loops of proximal jejunum, cannot exclude focal ileus versus partial small bowel obstruction. Assess/Plan/Problems-Billing Assessment: 62 y/o alcoholic M with PMH of Hepatitis C, IV drug use presented with complain of constipation, abdominal pain and distension. He is admitted with diagnosis of Constipation probably due to Paralytic ileus or SBO, Ascites. Paracentesis done but could not yield much fluid. - Patient Problems (1) Constipation Current Visit: Yes Status: Acute Code(s): K59.00 - CONSTIPATION, UNSPECIFIED SNOMED Code(s): 68983434 Comment: Likely due to ileus or SBO or SBP. NPO. (2) Cirrhosis of liver with ascites Current Visit: Yes Status: Acute Code(s): K74.60 - UNSPECIFIED CIRRHOSIS OF LIVER; R18.8 - OTHER ASCITES SNOMED Code(s): 35384505 Comment: Paracentesis done but could not any sluid. will try tomorrow again. Consult GI regarding worsening liver function with MELD score of 23. If fluid shows elevated WBC can consider treatment for SBP. (3) Hepatitis C virus infection cured after antiviral drug therapy Current Visit: Yes Status: Resolved Code(s): Z86.19 - PERSONAL HISTORY OF OTHER INFECTIOUS AND PARASITIC DISEASES SNOMED Code(s): 159529884 Comment: History of hepatitis C status post interferon therapy. ID consultation. Status and Disposition: Medicine, Inpatient
--- NOTE | 2018-10-05 19:05 | PN ---
Progress Note - Progress Note Date of Service: 10/05/18 Note: Attending Hospitalist Addendum: Patient seen and examined with Dr. Moran. Agree with assessment and plan as outlined in her note from today unless noted below. Obese man in NAD rrr, no mrg Distended abdomen dullness to percussion at periphery 1+ LE edema CTA b/l AOx 62M h/o cirrhosis and thrombocytopenia pw obstipation found with partial ileus and ascites ascites - cirrhosis in setting of HCV and possible concomitant alcoholic hepatitis -did not yield fluid today -repeat tomorrow -MELD 22 Illeus - suspect ileus 2/2 to local liver inflammation -NPO Tobacco abuse -nicotine lozengers -declines patch Thrombocytopenia -in setting of cirrhosis
--- NOTE | 2018-10-05 19:46 | CONS ---
CONSULTATION REPORT: DATE OF CONSULT: 10/05/18 REQUESTING PHYSICIAN: Dr. Gm Lidnsay. REASON FOR CONSULTATION: Cirrhosis, decompensation. HISTORY OF PRESENT ILLNESS: This is a 62-year-old male with past medical history of hepatitis C, polysubstance abuse, hypertension, and COPD, who presented with abdominal distention on 10/04/18. He states it has been difficult to have bowel movements. He has had liquid movements, but has not had a solid movement in weeks. He admits to increased edema of his lower extremities and also a new arm tremor over the last couple months as well. He has a history of hepatitis C, initially tried to be cured with Pegasys interferon; however, that failed many years ago. He was recently treated by Dr. Martino and states that he achieved SVR with Mavyert therapy as little as 2 to 3 months ago. He has been having ongoing alcohol abuse. He drinks at least 2 to 4 rum and coke nightly at times, sometimes more. He denies any Tylenol use. Denies any recent injection drug use in the last 3 years. No recent antibiotics or new medications. States he was told he had cirrhosis a few years ago. Admits to yellowing of the eyes and skin. Admits to weight gain in the last 3 to 4 months with difficulty buttoning his pants. No black or blood in the stool. No diarrhea or constipation. No nausea or vomiting. Denies any abdominal pain, but admits that he is quite distended. Remainder of the 14- point review of systems is grossly negative. PAST MEDICAL HISTORY: 1. Hepatitis C, status post Pegasys and Mavyert therapy. 2. EtOH abuse. 3. CAD. 4. Polysubstance abuse. 5. Hypertension. 6. Peripheral neuropathy. 7. Back pain. PAST SURGICAL HISTORY: Denies any abdominal surgeries. MEDICATIONS: Home medications include: 1. Fluticasone. 2. Salmeterol. 3. Tramadol. 4. Gabapentin. 5. Suboxone. 6. Lisinopril. ALLERGIES: Include PHENOBARBITAL. SOCIAL HISTORY: Current smoker. Current EtOH abuse, using 3 to 4 drinks a night, bourbon and coke, at times heavier. He has a history of polysubstance abuse, but states he has had no injection or inhalant drugs in the last 3 years. He is now on Suboxone therapy and marijuana. He lives with his . FAMILY HISTORY: Denies any family history of GI cancer or liver disease. REVIEW OF SYSTEMS: Remainder of the 14-point review of systems is grossly negative. PHYSICAL EXAMINATION: Vital Signs: Blood pressure is 125/82, pulse is 107, respiratory rate is 20, 98% on room air, T-max is 98 degrees. General: Alert, no acute distress, oriented x3. Jaundiced. HEENT: Atraumatic, normocephalic. Pupils equal, round, reactive to light. Extraocular movements are intact. Conjunctivae are pink. Sclerae are icteric bilaterally. Cardiovascular: Tachycardic, S1, S2. Respiratory: Rales in bilateral bases and dullness. Fair effort. Abdomen: Distended. Soft. Bowel sounds hypoactive. Positive shifting dullness. Nontender. Extremities: No clubbing. No cyanosis. There is 2+ edema bilaterally. Skin: Extensive tattoos. Scattered ecchymoses. Psych: Appropriate mood and affect. DIAGNOSTIC STUDIES/LAB DATA: Hemoglobin 12.8, platelet count is 89. INR is 2.25. Sodium 132. Bilirubin total 7.1. AST 177, ALT is 75. Ammonia is 89. CRP 15. Albumin 2.8. He had a gallbladder ultrasound that showed some ascites and some mild gallbladder wall thickening. He also had a CT of the abdomen and pelvis showing ascites, cirrhotic-appearing liver, left pleural effusion, portosystemic collateral veins in the abdomen and paraesophageal region consistent with portal hypertension, mild thickening of the distal esophagus, and dilated loops in the proximal jejunum. ASSESSMENT AND PLAN: This is a 62-year-old male admitted with decompensated cirrhosis. 1. Decompensated cirrhosis. Etiology likely hepatitis C in combination with ongoing alcohol abuse. He may have a component of alcoholic hepatitis. We will order a Maddrey discriminant function, suspect it will be elevated. Would not start steroids until infection has been ruled out in ascitic fluid. Recommend paracentesis with full studies including cytology, albumin, and cell count along with Gram stain. Recommend calculation of SAAG once this has been established. He needs complete cessation of alcohol that is certainly exacerbating his ongoing process. His sodium MELD score is 26. He is not eligible for liver transplantation at this time secondary to recent alcohol abuse. Discussed the prognosis of a MELD score of 26 and the need for absolute cessation of alcohol. Suspected etiology is likely hepatitis C and alcohol, but we will check autoimmune serologies. In addition, we would recommend getting an ultrasound of the portal vein with Doppler to rule out Budd-Chiari. In addition, repeat hepatitis panel and repeat a hepatitis C RNA to confirm eradication. He does have thickening of the distal esophagus and also has evidence of potentially portal hypertension on the CT scan. He does need an EGD to evaluate for varices in the near future. 2. Ethanol abuse. Counseled extensively. 3. History of polysubstance abuse. 4.) History of HCV s/p pegasys with failure and recent Mayvert, states he achieved SVR. Repeat HCV RNA 5.) Constipation: admits to having liquid bms and also passing flatus, CT findings noted. Would get paracentesis and clinically follow. [id number]/CPS #: [id number] MTDD
[2018-10-05 20:22] LABS: % Iron Saturation 21 % (15-55); Iron 41 ug/dL (50-212); Total Iron Binding Capacity 195 mcg/dL (250-450); Transferrin 139 mg/dL (203-362)
[2018-10-05 20:44] LABS: Total Bilirubin 6.3 mg/dL (0.2-1.0)
[2018-10-05 20:57] LABS: Ferritin 186.8 ng/mL (24-336)
[2018-10-05] MEDS ORDERED: Gabapentin CAP(*) 300 MG PO SCH (21:00)
[2018-10-05 21:16] LABS: Hepatitis B Surface Antigen Negative (Negative)
[2018-10-05 21:46] LABS: Hepatitis C Antibody Reactive (Negative)
[2018-10-06 06:26] LABS: ABS Basophils 0.1 10^3/ul (0-0.2); ABS Eosinophils 0.1 10^3/ul (0-0.6); ABS Lymphocytes 1.5 10^3/ul (1.0-4.8); ABS Monocytes 0.7 10^3/ul (0-0.8); ABS Neutrophils 2.8 10^3/ul (1.5-7.7); Eosinophil % 1.7 %; Hematocrit 35 % (42-52); Hemoglobin 11.8 g/dL (14.0-18.0); Lymphocyte % 29.7 %; Mean Corpuscular HGB Conc 34 g/dL (31-36); Mean Corpuscular Hemoglobin 37 pg (27-31); Mean Corpuscular Volume 109 fL (80-94); Mean Platelet Volume 8.6 fL (7.4-10.4); Nucleated Red Blood Cells % 0.1; Platelet Count 63 10^3/uL (150-450); Red Blood Count 3.17 10^6 /uL (4.18-5.48); Red Cell Distribution Width 17 % (10-15); White Blood Count 5.2 10^3/uL (3.5-10.8)
[2018-10-06 06:47] LABS: Albumin 2.3 g/dL (3.2-5.2); Albumin/Globulin Ratio 0.6 (1-3); BUN/Creatinine Ratio 10.6 (8-20); Calcium 7.8 mg/dL (8.6-10.3); EGFR African American 99.1 (>60); EGFR Non-African American 81.9 (>60); Globulin 3.7 g/dL (2-4); Potassium 3.7 mmol/L (3.5-5.0)
[2018-10-06] MEDS: Mometasone/Formoter 100/5 MDI INH SCH (07:23)
[2018-10-06] MEDS: Buprenorp/Nalox 8-2 MG FILM SL FILM SCH (09:03)
[2018-10-06] MEDS: Lisinopril TAB* 10 MG PO SCH (09:03)
[2018-10-06 09:10] LABS: INR 2.45 (0.82-1.09)
[2018-10-06 09:15] LABS: Albumin 2.4 g/dL (3.2-5.2); Albumin/Globulin Ratio 0.6 (1-3); Indirect Bilirubin 3.6 mg/dL (0.3-1.0); Total Bilirubin 6.4 mg/dL (0.2-1.0); Total Protein 6.4 g/dL (6.4-8.9)
[2018-10-06 17:08] LABS: Body Fluid Source Peritonial Fluid
--- NOTE | 2018-10-06 18:19 | PN ---
Progress Note - Progress Note Date of Service: 10/06/18 Note: Paracentesis note: Consent in chart Performed using sterile technique Right abdomen marked and prepped with chlorhexidine Site marked with ultrasound guidance 5cc lidocaine used to anesthetize site Needle advanced and yellow fluid returned Using seldinger technique needle advanced and 3500cc straw colored fluid removed Patient tolerated procedure well No complications from procedure
--- NOTE | 2018-10-06 19:07 | PN ---
<Violet Moran - Last Filed: 10/06/18 19:01> Subjective Date of Service: 10/06/18 Interval History: Patient doesnot have any fresh complaint. Objective Active Medications: Buprenorphine/Naloxone (Suboxone 8 Mg-2 Mg Sl Film) 2 each SL FILM DAILY [facility] Last Admin: 10/06/18 09:03 Dose: Not Given Vital Signs - 8 hr 10/06/18 10/06/18 11:15 15:15 Temperature 98.3 F 98.2 F Pulse Rate 80 80 Respiratory 20 20 Rate Blood Pressure 122/69 104/54 (mmHg) O2 Sat by Pulse 93 94 Oximetry Oxygen Devices in Use Now: None Exam: Patient is lying on his bed. General: Patient has tattoo over his left and right hand. There is jaundice, palmar erythema and spider nevi. Abdomen: There is bruise on right side of abdomen. Abdomen is distended with some collaterals visible. It was hyperresonant on center and dull on lateral sides. No fluid wave. Bowel sound was present on all quadrants of abdomen. Respiratory: Normal vesicular sound heard on both lungs. CVS: Normal heart sound heard with no any murmur. Neuro: Alert, conscious and oriented. Result Diagrams: 10/06/18 06:07 10/06/18 06:07 Diagnostic Imaging: Gallbladder US: 1. The common bile duct was not visualized because of overlying bowel gas. 2. There is ascites in the abdomen. 3. The liver parenchyma is echogenic and there is nodular contour consistent with hepatic cirrhosis. 4. The gallbladder is partly obscured but no visible calculi but there is mild gallbladder wall thickening measuring 4 mm and there is ascites fluid in the gallbladder fossa but negative sonographic Walker sign and therefore not specific for acute cholecystitis. Abdomen/Pelvis CT: 1. There is a moderate left pleural effusion and left base atelectasis and/or pneumonitis. 2. There is diffuse fatty liver and small nodular contour of the liver suspicious for hepatic cirrhosis. 3. The gallbladder is moderately distended and there are punctate calcifications along the gallbladder wall which may represent tiny cholelithiasis versus calcified polyps. 4. There are portosystemic collateral veins in the abdomen and paraesophageal region consistent with portal venous hypertension related to hepatic cirrhosis. 5. There is moderate ascites in the abdomen and pelvis likely secondary to hepatic cirrhosis. 6. There may be mild wall thickening in the distal esophagus, cannot exclude mild esophagitis. 7. There are mildly dilated loops of proximal jejunum, cannot exclude focal ileus versus partial small bowel obstruction. Assess/Plan/Problems-Billing Assessment: 62 y/o alcoholic M with PMH of Hepatitis C, IV drug use presented with complain of constipation, abdominal pain and distension. He is admitted with diagnosis of Constipation probably due to Paralytic ileus or SBO, Ascites. Paracentesis done and sent for cytology, gram stain and culture. - Patient Problems (1) Constipation Current Visit: Yes Status: Acute Code(s): K59.00 - CONSTIPATION, UNSPECIFIED SNOMED Code(s): 07350034 Comment: Likely due to ileus or SBO or SBP. NPO. (2) Cirrhosis of liver with ascites Current Visit: Yes Status: Acute Code(s): K74.60 - UNSPECIFIED CIRRHOSIS OF LIVER; R18.8 - OTHER ASCITES SNOMED Code(s): 45778679 Comment: Paracentesis done today and fluid sent for cytology, gram stain and culture. total of 3200 ml aspirated. Consult GI regarding worsening liver function with MELD score of 23. If fluid shows elevated WBC can consider treatment for SBP. (3) Hepatitis C virus infection cured after antiviral drug therapy Current Visit: Yes Status: Resolved Code(s): Z86.19 - PERSONAL HISTORY OF OTHER INFECTIOUS AND PARASITIC DISEASES SNOMED Code(s): 106290424 Comment: History of hepatitis C status post interferon therapy. ID consulted. Waiting for viral load hep c. Status and Disposition: Medicine, Inpatient Attending: Gm Lindsay <Gm Lindsay - Last Filed: 10/07/18 12:11> Objective Active Medications: Buprenorphine/Naloxone (Suboxone 8 Mg-2 Mg Sl Film) 1 each SL FILM BID [facility] Last Admin: 10/07/18 08:41 Dose: 1 each Vital Signs - 8 hr 10/07/18 10/07/18 07:15 08:00 Temperature 98.1 F Pulse Rate 73 Respiratory 19 18 Rate Blood Pressure 118/72 (mmHg) O2 Sat by Pulse 96 Oximetry Result Diagrams: 10/07/18 07:31 10/07/18 07:31 Assess/Plan/Problems-Billing Well appearing, NAD rrr, no mrg CTA b/l Distended, NT, no rebound/guarding no c/c/e AOX3 Assessment: 62 M h/o HCV, heavy alcohol use pw focal obstipation fw local illeus and hepatitis Hepatitis- suspect alcohol induced with underlying cirrhosis -monitor H/o opiod abuse disorder -suboxone Focal illeus - -NPO -3.5 L ascited removed today -ambulate - Patient Problems (1) Adynamic ileus Comment: suspect in setting of local liver inflammation advance to liquid diet today (2) HCV (hepatitis C virus) Comment: viral count pending (3) Cirrhosis Comment: complicated by ascited s/p 3.5 L removed 10/06 non-infected (4) Liver failure Comment: suspect decompensation in setting of etoh counseled cessation PT pending re: calculation of maddrey discriminate function trend labs daily (5) History of intravenous drug abuse Comment: suboxone BID Attestation Documenting Resident: Neftali Supervising Physician: Luisa Attestation: This service has been performed in part by a resident under the direction of a teaching physician.Luisa Lamas, performed the service, or was physically present during the critical, or stevens portions of the service, furnished by the resident. I participated in the management of the patient.
[2018-10-06 19:09] LABS: Body Fluid Mono 10 %; Body Fluid Other Cells 29
[2018-10-06] MEDS ORDERED: Buprenorp/Nalox 8-2 MG SL TAB SL ONE (21:00)
[2018-10-07] MEDS ORDERED: NS 0.9% 1000 ML** 1,000 ML IV SCH (08:30)
[2018-10-07 08:32] LABS: ABS Basophils 0.1 10^3/ul (0-0.2); ABS Eosinophils 0.1 10^3/ul (0-0.6); ABS Lymphocytes 2.1 10^3/ul (1.0-4.8); ABS Monocytes 0.7 10^3/ul (0-0.8); ABS Neutrophils 3.2 10^3/ul (1.5-7.7); Eosinophil % 1.7 %; Hematocrit 37 % (42-52); Hemoglobin 12.5 g/dL (14.0-18.0); Lymphocyte % 33.3 %; Mean Corpuscular HGB Conc 34 g/dL (31-36); Mean Corpuscular Hemoglobin 37 pg (27-31); Mean Corpuscular Volume 110 fL (80-94); Mean Platelet Volume 9.5 fL (7.4-10.4); Nucleated Red Blood Cells % 0.2; Platelet Count 61 10^3/uL (150-450); Red Blood Count 3.37 10^6 /uL (4.18-5.48); Red Cell Distribution Width 17 % (10-15); White Blood Count 6.2 10^3/uL (3.5-10.8)
[2018-10-07] MEDS ORDERED: Buprenorp/Nalox 8-2 MG FILM SL FILM ONE (08:34)
[2018-10-07] MEDS: Buprenorp/Nalox 8-2 MG FILM SL FILM SCH ×2 (08:41→20:45)
[2018-10-07 08:48] LABS: Albumin 2.4 g/dL (3.2-5.2); Albumin/Globulin Ratio 0.6 (1-3); BUN/Creatinine Ratio 9.7 (8-20); EGFR African American 100.3 (>60); EGFR Non-African American 82.9 (>60); Globulin 3.8 g/dL (2-4); Potassium 4.2 mmol/L (3.5-5.0); Total Bilirubin 7.1 mg/dL (0.2-1.0); Total Protein 6.2 g/dL (6.4-8.9)
--- NOTE | 2018-10-07 10:33 | PN ---
Subjective Date of Service: 10/07/18 Interval History: Small "pebble poop" yesterday with continued flatus since that time Abdomen feels less distended No pain Objective Active Medications: Buprenorphine/Naloxone (Suboxone 8 Mg-2 Mg Sl Film) 1 each SL FILM BID [facility] Last Admin: 10/07/18 08:41 Dose: 1 each Vital Signs - 8 hr 10/07/18 03:05 Temperature 98.3 F Pulse Rate 73 Respiratory 16 Rate Blood Pressure 116/69 (mmHg) O2 Sat by Pulse 95 Oximetry Oxygen Devices in Use Now: None Appearance: NAD Eyes: PERRLA, - - icteric Ears/Nose/Mouth/Throat: NL Teeth, Lips, Gums, Clear Oropharnyx Neck: NL Appearance and Movements; NL JVP, Trachea Midline Respiratory: Symmetrical Chest Expansion and Respiratory Effort, Clear to Auscultation Cardiovascular: NL Sounds; No Murmurs; No JVD, RRR Abdominal: - - distended, NTTP, no rebound/guarding Extremities: - - 1+ LE edema b/l Skin: - - jaundice, sites of paracentesis both c/d/i no drainage Neurological: Alert and Oriented x 3 Result Diagrams: 10/07/18 07:31 10/07/18 07:31 Microbiology and Other Data: Microbiology 10/04/18 07:37 Urine Culture - Final Urine 10/06/18 17:00 Gram Stain - Final Ascites Fluid Diagnostic Imaging: Gallbladder US: 1. The common bile duct was not visualized because of overlying bowel gas. 2. There is ascites in the abdomen. 3. The liver parenchyma is echogenic and there is nodular contour consistent with hepatic cirrhosis. 4. The gallbladder is partly obscured but no visible calculi but there is mild gallbladder wall thickening measuring 4 mm and there is ascites fluid in the gallbladder fossa but negative sonographic Walker sign and therefore not specific for acute cholecystitis. Abdomen/Pelvis CT: 1. There is a moderate left pleural effusion and left base atelectasis and/or pneumonitis. 2. There is diffuse fatty liver and small nodular contour of the liver suspicious for hepatic cirrhosis. 3. The gallbladder is moderately distended and there are punctate calcifications along the gallbladder wall which may represent tiny cholelithiasis versus calcified polyps. 4. There are portosystemic collateral veins in the abdomen and paraesophageal region consistent with portal venous hypertension related to hepatic cirrhosis. 5. There is moderate ascites in the abdomen and pelvis likely secondary to hepatic cirrhosis. 6. There may be mild wall thickening in the distal esophagus, cannot exclude mild esophagitis. 7. There are mildly dilated loops of proximal jejunum, cannot exclude focal ileus versus partial small bowel obstruction. Assess/Plan/Problems-Billing Assessment: 62 M h/o treated HCV (twice after recurrence), cirrhosis, etoh use/abuse p/w ascites, constipation found with liver failure and localized illeus vs partial SBO - Patient Problems (1) Adynamic ileus Comment: suspect in setting of local liver inflammation advance to liquid diet today (2) HCV (hepatitis C virus) Comment: viral count pending (3) Cirrhosis Comment: complicated by ascited s/p 3.5 L removed 10/06 non-infected (4) Liver failure Comment: suspect decompensation in setting of etoh counseled cessation PT pending re: calculation of maddrey discriminate function trend labs daily (5) History of intravenous drug abuse Comment: suboxone BID Status and Disposition: Medicine, Inpatient
[2018-10-07 11:33] LABS: INR 2.51 (0.82-1.09)
[2018-10-07 18:22] LABS: Mitochondria M2 Antibody <0.1 U
[2018-10-07] MEDS ORDERED: Lidocaine 4% TOPICAL* 50 ML TOP.SOLN TOPICAL ONE (19:13)
[2018-10-07] MEDS ORDERED: Lidocaine 4% GEL* 10 GM TUBE TOPICAL ONE (20:30)
[2018-10-08 06:29] LABS: INR 2.48 (0.82-1.09)
[2018-10-08 06:33] LABS: Albumin 2.2 g/dL (3.2-5.2); Albumin/Globulin Ratio 0.6 (1-3); BUN/Creatinine Ratio 9.4 (8-20); Calcium 8.1 mg/dL (8.6-10.3); EGFR African American 96.7 (>60); EGFR Non-African American 79.9 (>60); Globulin 3.6 g/dL (2-4); Indirect Bilirubin 3.8 mg/dL (0.3-1.0); Potassium 3.7 mmol/L (3.5-5.0); Total Bilirubin 6.8 mg/dL (0.2-1.0); Total Protein 5.8 g/dL (6.4-8.9)
[2018-10-08] MEDS: Buprenorp/Nalox 8-2 MG FILM SL FILM SCH ×2 (09:22→20:06)
--- NOTE | 2018-10-08 14:34 | PN ---
<Violet Moran - Last Filed: 10/08/18 14:28> Subjective Date of Service: 10/08/18 Interval History: Patient doesnot have any fresh complaint. He had 1 bowel movement today which was hard. Passing flatus. Objective Active Medications: Buprenorphine/Naloxone (Suboxone 8 Mg-2 Mg Sl Film) 1 each SL FILM BID [facility] Last Admin: 10/08/18 09:22 Dose: 1 each Vital Signs - 8 hr 10/08/18 10/08/18 10/08/18 07:33 08:00 11:10 Temperature 98.2 F 97.8 F Pulse Rate 84 84 Respiratory 16 18 20 Rate Blood Pressure 122/76 133/63 (mmHg) O2 Sat by Pulse 95 93 Oximetry Oxygen Devices in Use Now: None Exam: Patient was lying on bed. General: There is jaundice(improving), palmar erythema and spider nevi. Abdomen: Distended, firm.Bowel sound present all over the abdomen. Respiratory: Normal vesicular sound heard. CVS: Normal heart sound heard with no murmur, rubs or gallops. Neuro: Alert, conscious and oriented. Result Diagrams: 10/07/18 07:31 10/08/18 05:57 Microbiology and Other Data: Microbiology 10/04/18 07:37 Urine Culture - Final Urine 10/06/18 17:00 Gram Stain - Final Ascites Fluid Diagnostic Imaging: Gallbladder US: 1. The common bile duct was not visualized because of overlying bowel gas. 2. There is ascites in the abdomen. 3. The liver parenchyma is echogenic and there is nodular contour consistent with hepatic cirrhosis. 4. The gallbladder is partly obscured but no visible calculi but there is mild gallbladder wall thickening measuring 4 mm and there is ascites fluid in the gallbladder fossa but negative sonographic Walker sign and therefore not specific for acute cholecystitis. Abdomen/Pelvis CT: 1. There is a moderate left pleural effusion and left base atelectasis and/or pneumonitis. 2. There is diffuse fatty liver and small nodular contour of the liver suspicious for hepatic cirrhosis. 3. The gallbladder is moderately distended and there are punctate calcifications along the gallbladder wall which may represent tiny cholelithiasis versus calcified polyps. 4. There are portosystemic collateral veins in the abdomen and paraesophageal region consistent with portal venous hypertension related to hepatic cirrhosis. 5. There is moderate ascites in the abdomen and pelvis likely secondary to hepatic cirrhosis. 6. There may be mild wall thickening in the distal esophagus, cannot exclude mild esophagitis. 7. There are mildly dilated loops of proximal jejunum, cannot exclude focal ileus versus partial small bowel obstruction. Assess/Plan/Problems-Billing 62 y/o alcoholic M with PMH of Hepatitis C, IV drug use presented with complain of constipation, abdominal pain and distension. He is admitted with diagnosis of Constipation probably due to Paralytic ileus or SBO, Ascites. SBP ruled out. - Patient Problems (1) Constipation Current Visit: Yes Status: Acute Code(s): K59.00 - CONSTIPATION, UNSPECIFIED SNOMED Code(s): 49050294 Comment: Likely due to ileus or SBO or SBP. Liquid diet. Had 1 bowel movement today. (2) Cirrhosis of liver with ascites Current Visit: Yes Status: Acute Code(s): K74.60 - UNSPECIFIED CIRRHOSIS OF LIVER; R18.8 - OTHER ASCITES SNOMED Code(s): 22661312 Comment: SBP ruled out. Bilirubin still elevated. (3) Hepatitis C virus infection cured after antiviral drug therapy Current Visit: Yes Status: Resolved Code(s): Z86.19 - PERSONAL HISTORY OF OTHER INFECTIOUS AND PARASITIC DISEASES SNOMED Code(s): 271586011 Comment: History of hepatitis C status post interferon therapy. ID consulted. Waiting for viral load hep c. Status and Disposition: Medicine, Inpatient Attending: Gm Lindsay <Gm Lindsay - Last Filed: 10/08/18 16:56> Objective Active Medications: Buprenorphine/Naloxone (Suboxone 8 Mg-2 Mg Sl Film) 1 each SL FILM BID [facility] Last Admin: 10/08/18 09:22 Dose: 1 each Lactulose (Lactulose*) 30 ml PO DAILY [facility] Last Admin: 10/08/18 16:51 Dose: 30 ml Methylprednisolone Sodium Succinate (Solu-Medrol 40 Mg) 40 mg IV DAILY [facility] Last Admin: 10/08/18 16:50 Dose: 40 mg Pantoprazole Sodium (Protonix Tab*) 40 mg PO DAILY [facility] Last Admin: 10/08/18 16:50 Dose: 40 mg Spironolactone (Aldactone Tab*) 25 mg PO DAILY [facility] Last Admin: 10/08/18 16:50 Dose: 25 mg Vital Signs - 8 hr 10/08/18 11:10 Temperature 97.8 F Pulse Rate 84 Respiratory 20 Rate Blood Pressure 133/63 (mmHg) O2 Sat by Pulse 93 Oximetry Result Diagrams: 10/07/18 07:31 10/08/18 05:57 Assess/Plan/Problems-Billing 62 M h/o HCV, IVDU, pw consitpation found with ascites, elevated LFTs and ileus Assessment: Ascites -start spironolactone Alcoholic hepatitis - suspect responsible for LFT abnormalities -Maddrey discriminant function 78 and marginal improvement since admission; will start steroids -protonix with steroids Ileus - suspected in setting of local inflammation in liver -improving -add lactulose -full liquid diet and ensures HCV -viral load pending Cirrhosis -recommended to have GI f/u for EGD to eval esophageal varices - Patient Problems (1) Adynamic ileus Comment: suspect in setting of local liver inflammation advance to liquid diet today (2) HCV (hepatitis C virus) Comment: viral count pending (3) Cirrhosis Comment: complicated by ascited s/p 3.5 L removed 10/06 non-infected (4) Liver failure Comment: suspect decompensation in setting of etoh counseled cessation PT pending re: calculation of maddrey discriminate function trend labs daily (5) History of intravenous drug abuse Comment: suboxone BID Attestation Documenting Resident: Luisa Supervising Physician: Neftali Attestation: This service has been performed in part by a resident under the direction of a teaching physician.Neftali Lamas, performed the service, or was physically present during the critical, or stevens portions of the service, furnished by the resident. I participated in the management of the patient.
[2018-10-08] MEDS: methylPREDNISolone SOD 40 MG* 1 ML VIAL IV SCH (16:50)
[2018-10-08] MEDS: Spironolactone TAB* 25 MG PO SCH (16:50)
[2018-10-08] MEDS: Pantoprazole TAB * 40 MG TAB PO SCH (16:50)
[2018-10-09 06:35] LABS: INR 2.56 (0.82-1.09)
[2018-10-09 06:43] LABS: ALT 80 U/L (7-52); AST 196 U/L (13-39); Albumin 2.3 g/dL (3.2-5.2); Albumin/Globulin Ratio 0.6 (1-3); Alkaline Phosphatase 86 U/L (34-104); Anion Gap 5 mmol/L (2-11); BUN/Creatinine Ratio 9.8 (8-20); Blood Urea Nitrogen 9 mg/dL (6-24); CO2 Carbon Dioxide 22 mmol/L (22-32); Calcium 8.1 mg/dL (8.6-10.3); Chloride 108 mmol/L (101-111); EGFR African American 101.5 (>60); EGFR Non-African American 83.9 (>60); Globulin 3.9 g/dL (2-4); Glucose 147 mg/dL (70-100); Potassium 4.3 mmol/L (3.5-5.0); Sodium 135 mmol/L (135-145); Total Protein 6.2 g/dL (6.4-8.9)
[2018-10-09] MEDS: Spironolactone TAB* 25 MG PO SCH (08:52)
[2018-10-09] MEDS: Pantoprazole TAB * 40 MG TAB PO SCH (08:52)
[2018-10-09] MEDS: Buprenorp/Nalox 8-2 MG FILM SL FILM SCH ×2 (08:52→19:35)
[2018-10-09] MEDS: methylPREDNISolone SOD 40 MG* 1 ML VIAL IV SCH (08:52)
[2018-10-09 11:42] LABS: Smooth Muscle Antibody Negative (Negative)
[2018-10-09] MEDS ORDERED: Nicotine* 2MG (FRUIT FLAVOR) GUM PO PRN (13:07)
[2018-10-09 13:09] LABS: Fluid Type, Albumin PERITONEAL
[2018-10-09] MEDS: Furosemide TAB* 20 MG PO SCH (15:15)
--- NOTE | 2018-10-09 16:42 | PN ---
<Violet Moran - Last Filed: 10/09/18 16:37> Subjective Date of Service: 10/09/18 Interval History: Patient has no any complaint. He had 1 large bowel movement yesterday evening and 1 today. Passing flatus. Objective Active Medications: Buprenorphine/Naloxone (Suboxone 8 Mg-2 Mg Sl Film) 1 each SL FILM BID [facility] Last Admin: 10/09/18 08:52 Dose: 1 each Furosemide (Lasix Tab*) 20 mg PO DAILY [facility] Last Admin: 10/09/18 15:15 Dose: 20 mg Lactulose (Lactulose*) 30 ml PO DAILY [facility] Last Admin: 10/09/18 08:52 Dose: 30 ml Methylprednisolone Sodium Succinate (Solu-Medrol 40 Mg) 40 mg IV DAILY [facility] Last Admin: 10/09/18 08:52 Dose: 40 mg Nicotine Polacrilex (Nicotine Gum*) 2 mg PO Q2H PRN PRN Reason: CRAVING Pantoprazole Sodium (Protonix Tab*) 40 mg PO DAILY [facility] Last Admin: 10/09/18 08:52 Dose: 40 mg Spironolactone (Aldactone Tab*) 50 mg PO DAILY [facility] Vital Signs - 8 hr 10/09/18 10/09/18 10/09/18 11:21 15:15 16:01 Temperature 98 F 98.2 F Pulse Rate 81 71 Respiratory 16 18 20 Rate Blood Pressure 117/61 120/80 (mmHg) O2 Sat by Pulse 94 98 Oximetry Oxygen Devices in Use Now: None Exam: Patient was sitting on bed. General: There is jaundice(improving), palmar erythema and spider nevi. Abdomen: Distended, firm. Bowel sound present all over the abdomen. Respiratory: Normal vesicular sound heard. CVS: Normal heart sound heard with no murmur, rubs or gallops. Neuro: Alert, conscious and oriented. Result Diagrams: 10/07/18 07:31 10/09/18 06:05 Microbiology and Other Data: Microbiology 10/04/18 07:37 Urine Culture - Final Urine 10/06/18 17:00 Gram Stain - Final Ascites Fluid Diagnostic Imaging: Gallbladder US: 1. The common bile duct was not visualized because of overlying bowel gas. 2. There is ascites in the abdomen. 3. The liver parenchyma is echogenic and there is nodular contour consistent with hepatic cirrhosis. 4. The gallbladder is partly obscured but no visible calculi but there is mild gallbladder wall thickening measuring 4 mm and there is ascites fluid in the gallbladder fossa but negative sonographic Walker sign and therefore not specific for acute cholecystitis. Abdomen/Pelvis CT: 1. There is a moderate left pleural effusion and left base atelectasis and/or pneumonitis. 2. There is diffuse fatty liver and small nodular contour of the liver suspicious for hepatic cirrhosis. 3. The gallbladder is moderately distended and there are punctate calcifications along the gallbladder wall which may represent tiny cholelithiasis versus calcified polyps. 4. There are portosystemic collateral veins in the abdomen and paraesophageal region consistent with portal venous hypertension related to hepatic cirrhosis. 5. There is moderate ascites in the abdomen and pelvis likely secondary to hepatic cirrhosis. 6. There may be mild wall thickening in the distal esophagus, cannot exclude mild esophagitis. 7. There are mildly dilated loops of proximal jejunum, cannot exclude focal ileus versus partial small bowel obstruction. Assess/Plan/Problems-Billing 62 y/o alcoholic M with PMH of Hepatitis C, IV drug use presented with complain of constipation, abdominal pain and distension. He is admitted with diagnosis of Constipation probably due to Paralytic ileus or SBO, Ascites. SBP ruled out. - Patient Problems (1) Constipation Current Visit: Yes Status: Acute Code(s): K59.00 - CONSTIPATION, UNSPECIFIED SNOMED Code(s): 46772683 Comment: Likely due to ileus. Liquid diet. Had 1 bowel movement today and yesterday evening. (2) Cirrhosis of liver with ascites Current Visit: Yes Status: Acute Code(s): K74.60 - UNSPECIFIED CIRRHOSIS OF LIVER; R18.8 - OTHER ASCITES SNOMED Code(s): 18082904 Comment: SBP ruled out. Bilirubin still elevated. Patient started on spironolactone, furosemide. Oral prednisolone 40 mg given. (3) Hepatitis C virus infection cured after antiviral drug therapy Current Visit: Yes Status: Resolved Code(s): Z86.19 - PERSONAL HISTORY OF OTHER INFECTIOUS AND PARASITIC DISEASES SNOMED Code(s): 932765105 Comment: History of hepatitis C status post interferon therapy. Viral load undetectedon quantitative exam. Status and Disposition: Medicine, Inpatient Attending: Zakiya Johnson <Zakiya Johnson - Last Filed: 10/10/18 17:23> Objective Active Medications: Buprenorphine/Naloxone (Suboxone 8 Mg-2 Mg Sl Film) 1 each SL FILM BID [facility] Last Admin: 10/10/18 09:11 Dose: 1 each Furosemide (Lasix Tab*) 20 mg PO DAILY [facility] Last Admin: 10/10/18 09:12 Dose: 20 mg Lactulose (Lactulose*) 30 ml PO DAILY [facility] Last Admin: 10/10/18 09:11 Dose: 30 ml Methylprednisolone Sodium Succinate (Solu-Medrol 40 Mg) 40 mg IV DAILY [facility] Last Admin: 10/10/18 09:12 Dose: 40 mg Nicotine Polacrilex (Nicotine Gum*) 2 mg PO Q2H PRN PRN Reason: CRAVING Pantoprazole Sodium (Protonix Tab*) 40 mg PO DAILY [facility] Last Admin: 10/10/18 09:12 Dose: 40 mg Spironolactone (Aldactone Tab*) 50 mg PO DAILY [facility] Last Admin: 10/10/18 09:12 Dose: 50 mg Vital Signs - 8 hr 10/10/18 10/10/18 10/10/18 09:21 11:24 15:15 Temperature 97.9 F 98.1 F Pulse Rate 79 72 Respiratory 20 20 18 Rate Blood Pressure 117/84 129/71 (mmHg) O2 Sat by Pulse 96 95 Oximetry Result Diagrams: 10/07/18 07:31 10/10/18 10:12 Assess/Plan/Problems-Billing Assessment: No overnight events. Patient states he had one small BM this AM. Tolerated spironolactone yesterday. Will start furosemide today. Likely home tomorrow once lactulose titration at goal. Advance diet today. appears older than stated age scleral icterus no asterixis rrr no mgr ctab abd mildly distended, nontender wwp 62M with HCV s/p SVR, IVDU, alcohol use, presents with constipation and ascites , found with likely ileus and alcoholic hepatitis. # Decompensated cirrhosis. s/p LVP, no SBP. HCV cleared. - cont spironolactone, starting furosemide - stressed alcohol cessation - cont lactulose # Alcoholic hepatitis. MDF 80. - cont steroids, can switch to PO - PPI only while on steroids # Ileus. Resolved. - tolerated advanced diet, responded well to lactulose # h/o IVDU - cont bup Attestation Documenting Resident: Luisa Supervising Physician: Elizabeth Attestation: This service has been performed in part by a resident under the direction of a teaching physician.IElizabeth, performed the service, or was physically present during the critical, or stevens portions of the service, furnished by the resident. I participated in the management of the patient.
[2018-10-10 06:27] LABS: BUN/Creatinine Ratio 12.2 (8-20); Blood Urea Nitrogen 11 mg/dL (6-24); CO2 Carbon Dioxide 20 mmol/L (22-32); Calcium 7.9 mg/dL (8.6-10.3); Chloride 109 mmol/L (101-111); EGFR African American 104.2 (>60); EGFR Non-African American 86.1 (>60); Glucose 105 mg/dL (70-100); Sodium 135 mmol/L (135-145)
[2018-10-10 07:00] LABS: Anion Gap 6 mmol/L (2-11)
[2018-10-10 08:44] LABS: ALT 68 U/L (7-52); Albumin 2.1 g/dL (3.2-5.2); Albumin/Globulin Ratio 0.6 (1-3); Alkaline Phosphatase 81 U/L (34-104); Globulin 3.7 g/dL (2-4); Total Protein 5.8 g/dL (6.4-8.9)
[2018-10-10] MEDS ORDERED: Spironolactone TAB* 25 MG PO SCH (09:00)
[2018-10-10] MEDS: Buprenorp/Nalox 8-2 MG FILM SL FILM SCH (09:11)
[2018-10-10] MEDS: Pantoprazole TAB * 40 MG TAB PO SCH (09:12)
[2018-10-10] MEDS: methylPREDNISolone SOD 40 MG* 1 ML VIAL IV SCH (09:12)
[2018-10-10] MEDS: Furosemide TAB* 20 MG PO SCH (09:12)
[2018-10-10 10:41] LABS: Magnesium 1.9 mg/dL (1.9-2.7); Potassium Redraw 3.7 mmol/L (3.5-5.0)
[2018-10-10] MEDS ORDERED: Potassium Chlor TAB* 10 MEQ TAB.ER PO ONE (11:30)
[2018-10-10] MEDS ORDERED: Magnesium Sulfate 1 GM IV* 1 GM/100 ML BAG IV ONE (11:30)
[2018-10-10 17:02] VITALS: BP 129/71
--- NOTE | 2018-10-10 21:34 | DS ---
Resident Discharge Summary Discharge Summary: Date of Admission: 10/05/18 Date of Discharge: 10/10/18 Admitting MD: Eder Yadav MD Attending MD: Zakiya Johnson MD Primary Care Physician: Carie Martino MD Home Medications Medication Instructions Recorded Confirmed Type Fluticasone-Salmeterol 100-50* 1 puff INH BID 08/05/14 10/04/18 History [Advair Diskus 100-50*] Tramadol HCl [Ultram] 50 mg PO TID PRN 08/05/14 10/04/18 History Gabapentin CAP(*) [Neurontin 300 300 mg PO BEDTIME #30 cap 01/09/17 10/04/18 Rx CAP(*)] Buprenorp/Nalox 8-2 MG FILM 16 mg PO DAILY 11/25/17 10/04/18 History [Suboxone 8 mg-2 mg Sl Film] Furosemide TAB* [Lasix TAB*] 20 mg PO DAILY #30 tab 10/10/18 Rx Lactulose* 30 ml PO DAILY #900 ml 10/10/18 Rx Nicotine GUM* 2MG FRUIT FLAVOR 2 mg PO Q2H PRN #90 gum 10/10/18 Rx [Nicotine GUM*] Pantoprazole TAB * [Protonix TAB*] 40 mg PO DAILY #28 tab 10/10/18 Rx PrednisoLONE TAB (NF) [Millipred 40 mg PO DAILY #240 tab 10/10/18 Rx TAB (NF)] Spironolactone TAB* [Aldactone TAB 50 mg PO DAILY #30 tab 10/10/18 Rx 25 MG*] Disposition: Home Condition: Good Diagnostic Imaging: US Abdomen: Nodular contour consistent with hepatic origin. Gallbladder thickening and ascitic fluid in GB fossa. CT Abdomen/Pelvis: Diffuse fatty liver and small nodular contour of the liver suspicion of cirrhosis.. Moderate ascitic fluid in abdomen. Abdominal Xray: Several nondilated gaseous loops of bowel. US Portal vein: Normal hepatoportal flow. Pertinent Laboratory Results: Total Bilirubin: 8 during presentation. 4.6 on discharge AST:172 ALT:68 Platelet: 61,000 Hospital Course: 62 y/o M with PMH Hepatitis C(cured) presented with Constipation for 4 weeks and abdominal distension. He had liquid stools but no solid formed stools. No passing of flatus.He also had yellowish discoloration of skin but no fever, confusion.He drinks alcohol daily around 3-5 beers/day.He was an IV drug user britton on suboxone. On examination he had jaundice, palmar erythema, distended abdomen with increased resonance on center and dullness on periphery.He was admitted with diagnosis of Constipation due to ileus and liver cirrhosis with ascites. He was kept NPO except his S/L suboxone and was monitored. Paracentesis was done and 3200 ml fluid aspirated and fluid analysis didnot show any infection. Patient started having bowel movement and started to pass flatus. He was started on clear liquid diet and then full liquid. Oral spironolactone and furosemide was added and prednisolone 40 mg was started(MDF-78). We gave him potassium as it was slightly low. Follow Up Instructions: F/U with PCP in 28 days for tapering of steroids. F/U with Gastroenterologists in 1-2 weeks. Please note: 1.Oral prednisolone 40 mg daily started. Needs tapeing before full stop. 2. Oral spironolactone 50 mg and furosemide 20 mg started. 3. Oral pantoprazole added. 4. Lactulose given 5. Counselled about his alcohol and smoking habit and nicotine patch given. In case of an emergency or after clinic hours, please go to your nearest Emergency Department. You may also call the [facility] chlorine operator at .
== END 2018-10-10 17:00 | disposition home or self-care (01) | DRG 247 ==
LOC: ED 17:50 → MED 10-05 05:16
PROVIDERS: ADMIT Internal Medicine; ATTEND Internal Medicine
PROC: 0W9G3ZZ Drainage of Peritoneal Cavity, Percutaneous Approach (ICD-10-PCS; principal; 2018-10-05)
DX: K56.7 Ileus, unspecified (principal); J90 Pleural effusion, not elsewhere classified; J98.11 Atelectasis; D69.6 Thrombocytopenia, unspecified; K74.60 Unspecified cirrhosis of liver; K70.11 Alcoholic hepatitis with ascites; K72.90 Hepatic failure, unspecified without coma; F10.20 Alcohol dependence, uncomplicated; I10 Essential (primary) hypertension; J44.9 Chronic obstructive pulmonary disease, unspecified; I25.10 Atherosclerotic heart disease of native coronary artery without angina pectoris; G62.9 Polyneuropathy, unspecified; F19.21 Other psychoactive substance dependence, in remission; F17.210 Nicotine dependence, cigarettes, uncomplicated; K59.00 Constipation, unspecified; E66.9 Obesity, unspecified; Z68.31 Body mass index [BMI] 31.0-31.9, adult; Z86.19 Personal history of other infectious and parasitic diseases; Z88.8 Allergy status to other drugs, medicaments and biological substances; Z82.49 Family history of ischemic heart disease and other diseases of the circulatory system; Z79.899 Other long term (current) drug therapy
CPT/HCPCS: 36415; 74018; 74176; 76705; 80048; 80053; 80074; 80076; 81003; 81015; 82042; 82140; 82150; 82247; 82607; 82728; 82746; 83516; 83540; 83550; 83690; 83735; 84157; 85025; 85027; 85610; 85730; 86140; 86255; 87040; 87070; 87077; 87086; 87205; 87522; 89051; 93975; 94640; 99284; 99406; A9270-GY; J2920; J3475